=== PATIENT | female | born 1955 | race Two or more races ===

== ENCOUNTER 2025-03-19 12:42 | Outpatient (RCR) | payer MEDICARE, SELFPAY ==
--- NOTE | 2025-03-19 13:13 | PT.OIERPT ---
PT OP Initial Eval Patient Information Outpatient Physical Therapy Treatment Date: 03/19/25 Visit Reasons: RT KNEE POST OP Medical Diagnosis: s83.241d; M23.91 Treatment Dx #1: Right Knee Pain Treatment Dx #2: Right Knee Weakness Start of Care: 03/19/25 Date of Onset: 01/28/25 Smoking Status Smoking Status: Never smoker Initial Assessment Subjective: Pt is a 70 y/o female s/p right arthroscopic surgery by Dr White on 01/28/25. Pt still has knee pain (7/10) with activities. Pt has limitation with walking, standing, pivoting, squatting, balance, stairs, and performing recreational activities. Objective: Right Knee AROM: -5 deg to 130 deg Right Knee MMTs: grossly 4-/5 Right Hip MMTs: grossly 3+/5 Knee Cap Mobility: hypomobile in all plane SLS: NT Assessment: Pt demonstrate right knee mobility and strength s/p surgery leading to difficulty with ADLs. Pt will benefit from physical therapy to increase ROM, strength, and work on ambulation. Short Term and Senior Living Goals 1) Increase right knee AROM WNL in 6 wks to be able to perform squatting activities 2) Increase right knee MMTs grossly to 4/5 in 6 wks to be able to perform stairs and steps 3) Increase right hip MMTs grossly to 4-/5 in 6 wks to be able to walk more than 30 mins 4) Increase SLS to 10 sec in 6 wks to be able to perform self care activities 5) Indep with HEP Treatment Plan 1) Manual Therapy 2) Therapeutic Activities 3) Therapeutic Exercises 4) Modalities (ice, heat) Frequency and Duration: 2 x wk for 6 wks Certification Dates: 03/19/25 to 06/19/25 Procedure Charges OP PT Eval Mod Complex 30 minutes: Yes
== END 2025-03-20 23:59 | disposition home or self-care (01) ==
LOC: CPTX 12:42
PROVIDERS: PCP Orthopaedic Surgery; Referring Provider Orthopaedic Surgery; Visit Provider Orthopaedic Surgery
DX: M25.561 Pain in right knee (principal); R53.1 Weakness; R26.2 Difficulty in walking, not elsewhere classified; R26.89 Other abnormalities of gait and mobility; S83.241D Other tear of medial meniscus, current injury, right knee, subsequent encounter; M23.91 Unspecified internal derangement of right knee; X58.XXXD Exposure to other specified factors, subsequent encounter
CPT/HCPCS: 97162

== ENCOUNTER 2025-04-11 09:30 | Outpatient (RCR) | payer MEDICARE, SELFPAY ==
--- NOTE | 2025-03-26 11:10 | PT.ODAYNRPT ---
PT Outpatient Daily Note OP Daily Note Outpatient Physical Therapy Treatment Date: 03/26/25 Visit Reasons: right knee surgery Subjective: Pt reports R knee is doing is ok, mentioned that she has been doing some exercises that she got from online. Objective: Please see flow sheet for ther ex list. Assessment: Pt instructed on heel prop exercise and encouraged to perform for HEP, pt agreed. Plan: Assess response to treatment. Procedure Charges Therapeutic Exercise 30 minutes: Yes
--- NOTE | 2025-03-28 10:23 | PT.ODAYNRPT ---
PT Outpatient Daily Note OP Daily Note Outpatient Physical Therapy Treatment Date: 03/28/25 Visit Reasons: right knee surgery Subjective: Pt still notice a little pain inside the knee with walking and standing. Pt will like to work on getting her knee more straight in the next few sessions. Objective: Right Knee AROM: -2 deg to 130 deg Assessment: Pt is is progressing with knee AROM with less pain reported. Frequent cues to correct standing calf stretch to achieve the right form Plan: Continue with PT Length of Time (minutes) of Treatment: 30 Minutes Procedure Charges Therapeutic Exercise 30 minutes: Yes
--- NOTE | 2025-04-01 10:41 | PT.ODAYNRPT ---
PT Outpatient Daily Note OP Daily Note Outpatient Physical Therapy Treatment Date: 04/01/25 Visit Reasons: right knee surgery Subjective: Pt reports knee is progressing. Objective: Please see flow sheet for ther ex list. Assessment: Verbal and tactile cues for pt to avoid medial knee collapse during squat exercise, pt complied. Plan: Continue with POC. Length of Time (minutes) of Treatment: 30 Minutes [employer] SUPPORT MANAGER Service Modifier Method I: Divide the number of min of care provided by the INTEGRATED LOGIST[employer] SUPPORT MANAGER/[place] by the total min of care provided then multiply by 100. If greater than 11 percent modifier is required. Method II: Divide the total time of care provided to patient by 10 (round to the nearest whole number) and add 1 min. to set the minimum time requirement. If treatment total was 60 min., then 10% of 6 min PT CQ modifier applied: CQ Modifier applied Procedure Charges Therapeutic Exercise 30 minutes: Yes
--- NOTE | 2025-04-04 11:02 | PT.ODAYNRPT ---
PT Outpatient Daily Note OP Daily Note Outpatient Physical Therapy Treatment Date: 04/04/25 Visit Reasons: right knee surgery Subjective: Pt's right knee is much better. Every so often the knee will buckle. Pt mentioned her left knee has been hurting and limits her ability to do certain functional task. Objective: Please see flow chart for list of ther ex performed Assessment: patient continue to progress with closed chain exercises with less right knee pain reported. Post ice helped with soreness and pain Plan: Continue with PT Length of Time (minutes) of Treatment: 30 Minutes Procedure Charges Therapeutic Exercise 30 minutes: Yes
--- NOTE | 2025-04-07 12:57 | PT.ODAYNRPT ---
PT Outpatient Daily Note OP Daily Note Outpatient Physical Therapy Treatment Date: 04/07/25 Visit Reasons: right knee surgery Subjective: Pt's knee feels good. Pt does not have any new concerns to report. Objective: Please see flow chart for list of ther ex performed Assessment: progress patient to 6 step with good form noted with lateral step up and step up exercises Plan: Continue with PT Length of Time (minutes) of Treatment: 30 Minutes Procedure Charges Therapeutic Exercise 30 minutes: Yes
--- NOTE | 2025-04-11 09:41 | PT.ODAYNRPT ---
PT Outpatient Daily Note OP Daily Note Outpatient Physical Therapy Treatment Date: 04/11/25 Visit Reasons: right knee surgery Subjective: Pt's knee is good. Pt does not have any new concerns to report. Objective: Please see flow chart for list of ther ex performed Assessment: progressing with closed chain exercises with minimal reported pain. Pt demonstrate improved quad and hip control with lateral step up exercises Plan: Continue with PT Length of Time (minutes) of Treatment: 30 Minutes Procedure Charges Therapeutic Exercise 30 minutes: Yes
== END 2025-04-20 23:59 | disposition home or self-care (01) ==
LOC: CPTX 09:30
PROVIDERS: PCP Orthopaedic Surgery; Referring Provider Orthopaedic Surgery; Visit Provider Orthopaedic Surgery
DX: M25.561 Pain in right knee (principal); R53.1 Weakness; R26.2 Difficulty in walking, not elsewhere classified; R26.89 Other abnormalities of gait and mobility; S83.241D Other tear of medial meniscus, current injury, right knee, subsequent encounter; X58.XXXD Exposure to other specified factors, subsequent encounter; M23.91 Unspecified internal derangement of right knee
CPT/HCPCS: 97110

== ENCOUNTER 2025-04-29 09:00 | Outpatient (RCR) | payer MEDICARE, SELFPAY ==
--- NOTE | 2025-04-22 09:53 | PT.ODAYNRPT ---
PT Outpatient Daily Note OP Daily Note Outpatient Physical Therapy Treatment Date: 04/22/25 Visit Reasons: RT knee surgery Subjective: Pt's knee is much better, however, still has concerns regarding the pain behind the knee. Pt is aware per surgeon that she has arthritis. Objective: Please see flow chart for list of ther ex performed Assessment: educated that pain in the posterior knee region is related to known arthritis within the knee. Pt gave verbal understanding. Progress patient to 6 step up and lateral step up with good form noted Plan: Continue with PT Length of Time (minutes) of Treatment: 30 Minutes Procedure Charges Therapeutic Exercise 30 minutes: Yes
--- NOTE | 2025-04-24 09:23 | PT.ODAYNRPT ---
PT Outpatient Daily Note OP Daily Note Outpatient Physical Therapy Treatment Date: 04/24/25 Visit Reasons: RT knee surgery Subjective: Pt's knee is getting better. Pt does not have any concerns today. Objective: Please see flow chart for list of ther ex performed Assessment: decrease vaulting with 6 step up and lateral step up exercises today and able to push through the knee concentrically on to the step Plan: Continue with PT Length of Time (minutes) of Treatment: 30 Minutes Procedure Charges Therapeutic Exercise 30 minutes: Yes
--- NOTE | 2025-04-29 09:51 | PT.ODS1RPT ---
PT OP Progress/Discharge Note Date of Service: 04/29/25 Progress Note/DC Note Progress Note/Discharge Note: DC Note Patient Information Visit Reasons: RT knee surgery Medical Diagnosis: s83.241d; m23.91 Treatment Dx #1: Right Knee Pain Service Discharge Date: 04/29/25 Status Subjective: Pt's knee is better and has been able to stand, walk, perform chores, and recreational activities. Pt will like to be release from physical therapy at this time. Objective: Right Knee AROM: all motions are WNL Right Knee MMTs: grossly 4/5 Right Hip MMTs: grossly 4-/5 SLS: 10 sec Assessment: Pt demonstrate improved right knee mobility and strength allowing her to resume ADLs with minimal limitation. Pt has met set goals in therapy and will no longer benefit from physical therapy. Pt was instructed on HEP last session and educated to continue exercises to maintain overall mobility. Pt performed all exercises safely, thank you for your referrals. Plan: D/C home with HEP and follow up with MD NOEL Procedure Charges Therapeutic Exercise 30 minutes: Yes
== END 2025-05-20 23:59 | disposition home or self-care (01) ==
LOC: CPTX 09:00
PROVIDERS: PCP Orthopaedic Surgery; Referring Provider Orthopaedic Surgery; Visit Provider Orthopaedic Surgery
DX: M25.561 Pain in right knee (principal); R26.89 Other abnormalities of gait and mobility; R53.1 Weakness; S83.241D Other tear of medial meniscus, current injury, right knee, subsequent encounter; X58.XXXD Exposure to other specified factors, subsequent encounter; R26.2 Difficulty in walking, not elsewhere classified
CPT/HCPCS: 97110